=== PATIENT | female | born 1990 | race Two or more races ===

== ENCOUNTER 2019-06-05 07:30 | Observation (INO) | payer OTHER ==
[~2019-06-05] VITALS: Ht 160 cm; Wt 89.5 kg
[2019-06-05 08:43] VITALS: BP 107/55
== END 2019-06-05 08:40 | disposition home or self-care (01) ==
LOC: 4S 07:30
PROVIDERS: ADMIT Obstetrics & Gynecology; ATTEND Obstetrics & Gynecology
DX: Z34.93 Encounter for supervision of normal pregnancy, unspecified, third trimester (principal); Z3A.33 33 weeks gestation of pregnancy

== ENCOUNTER 2019-06-05 09:02 | Observation (INO) | payer OTHER ==
[~2019-06-05] VITALS: Ht 160 cm; Wt 89.6 kg
[2019-06-12 08:05] VITALS: BP 107/59
== END 2019-06-12 08:50 | disposition home or self-care (01) ==
LOC: 4S 06-12 07:45
PROVIDERS: ADMIT Obstetrics & Gynecology; ATTEND Obstetrics & Gynecology
DX: Z34.93 Encounter for supervision of normal pregnancy, unspecified, third trimester (principal); Z3A.35 35 weeks gestation of pregnancy
CPT/HCPCS: 81002; G0378

== ENCOUNTER 2019-06-19 08:06 | Observation (INO) | payer OTHER ==
[2019-06-19 08:30] VITALS: BP 97/52
== END 2019-06-19 09:00 | disposition home or self-care (01) ==
LOC: 4S 08:06
PROVIDERS: ADMIT Obstetrics & Gynecology; ATTEND Obstetrics & Gynecology
DX: O26.893 Other specified pregnancy related conditions, third trimester (principal); R42 Dizziness and giddiness; Z3A.36 36 weeks gestation of pregnancy
CPT/HCPCS: 81002; G0378

== ENCOUNTER 2019-06-22 23:30 | Observation (INO) | payer OTHER ==
[~2019-06-22] VITALS: Ht 160 cm; Wt 90.3 kg
[2019-06-23 00:35] VITALS: BP 107/59
[2019-06-23] MEDS ORDERED: PREN1TAB80 PO (02:04)
[2019-06-23] MEDS ORDERED: HYDR275A IM (02:04)
== END 2019-06-23 02:33 | disposition home or self-care (01) ==
LOC: 4S 23:30
PROVIDERS: ADMIT Obstetrics & Gynecology; ATTEND Obstetrics & Gynecology
DX: O60.03 Preterm labor without delivery, third trimester (principal); Z3A.37 37 weeks gestation of pregnancy; Z91.013 Allergy to seafood
CPT/HCPCS: 81002; G0378

== ENCOUNTER 2019-06-23 05:13 | Observation (INO) | payer OTHER ==
[~2019-06-23] VITALS: Ht 160 cm; Wt 91.3 kg
[~2019-06-23 05:13] MED LIST: HYDR275A IM; PREN1TAB80 PO
[2019-06-26] MEDS ORDERED: PREN-217 PO (09:18)
[2019-06-26 09:20] VITALS: BP 99/58
== END 2019-06-26 09:10 | disposition home or self-care (01) ==
LOC: 4S 06-26 08:15
PROVIDERS: ADMIT Obstetrics & Gynecology; ATTEND Obstetrics & Gynecology
DX: Z34.93 Encounter for supervision of normal pregnancy, unspecified, third trimester (principal); Z3A.37 37 weeks gestation of pregnancy
CPT/HCPCS: 81002; G0378

== ENCOUNTER 2019-06-29 08:18 | Inpatient (IN) | payer OTHER ==
[~2019-06-29] VITALS: Ht 160 cm; Wt 90.3 kg
[~2019-06-29 08:18] MED LIST changes: +PREN-217 PO
[2019-06-29] MEDS ORDERED: PREN-217 PO (08:51)
[2019-06-29 08:52] VITALS: BP 140/55
[2019-06-29] MEDS ORDERED: RINGERS SOLUTION,LACTATED 1,000 ML IV PRN (10:09)
[2019-06-29] MEDS ORDERED: RINGERS SOLUTION,LACTATED 1,000 ML IV SCH (10:09)
[2019-06-29] MEDS ORDERED: OXYTOCIN 30 UNITS/LACT RINGERS 500 ML IV ONE ×2 (10:09→16:02)
[2019-06-29] MEDS ORDERED: CITRIC ACID/SODIUM CITRATE 30 ML SOLUTION UDCUP PO PRN (10:15)
[2019-06-29] MEDS ORDERED: OXYGEN THERAPY IH SCH (10:15)
[2019-06-29] MEDS ORDERED: METOCLOPRAMIDE HCL 5 MG/ML 2 ML VIAL IVP PRN (10:15)
[2019-06-29 10:45] LABS: BASOPHILS % (AUTO) 0.3 % (0.0-2.0); EOSINOPHILS % (AUTO) 1.4 % (1.0-6.0); HEMATOCRIT 33.3 % (36-46); HEMOGLOBIN 11.5 g/dL (12.0-16.0); LYMPHOCYTES % (AUTO) 21.1 % (22.0-44.0); MEAN CORPUSCULAR HEMOGLOBIN 32.8 pg (26.0-34.0); MEAN CORPUSCULAR HGB CONC 34.6 G/dL (31.0-37.0); MEAN CORPUSCULAR VOLUME 95 fL (80-100); MONOCYTES # (AUTO) 0.6 K/uL (0.1-1.0); MONOCYTES % (AUTO) 6.6 % (2.0-9.0); NEUTROPHILS # (AUTO) 6.8 K/uL (1.8-7.7); NEUTROPHILS % (AUTO) 70.6 % (40.0-70.0); PLATELET COUNT (AUTO)-OB 214 K/uL (150-450); RED BLOOD CELL COUNT(AUTO) 3.51 MIL/uL (4.00-5.20); RED CELL DISTRIBUTION WIDTH 13.3 % (11.5-14.5)
[2019-06-29] MEDS ORDERED: ROPIVACAINE HCL/PF 0.2% 100 ML ED ONE (11:06)
[2019-06-29] MEDS ORDERED: DiphenhydrAMINE HCL 50 MG/ML VIAL IVP PRN (11:45)
[2019-06-29] MEDS ORDERED: ONDANSETRON HCL 4 MG/2 ML VIAL IVP PRN (11:45)
[2019-06-29] MEDS ORDERED: ROPIVACAINE HCL/PF 0.2% 100 ML ED PRN (11:45)
[2019-06-29] MEDS: FentaNYL CITRATE-PF 100 MCG/2 ML VIAL IVP PRN ×2 (12:25→12:27)
[2019-06-29] MEDS ORDERED: MINERAL OIL 30 ML UDCUP ONE (15:40)
[2019-06-29] MEDS ORDERED: BENZOCAINE 20%/MENTHOL 56 GM SPRAY CANISTER TP PRN (16:15)
[2019-06-29] MEDS ORDERED: MAGNESIUM HYDROXIDE SUSPENSION 30 ML UDCUP PO PRN (16:15)
[2019-06-29] MEDS ORDERED: GLYCERIN/WITCH HAZEL LEAF 40 PADS JAR TP PRN (16:15)
[2019-06-29] MEDS ORDERED: LANOLIN 7 GM OINTMENT TP PRN (16:15)
[2019-06-29] MEDS ORDERED: LIDOCAINE/PF 1% 30 ML VIAL INJ PRN (16:15)
[2019-06-29] MEDS ORDERED: IBUPROFEN 800 MG TABLET PO PRN (16:15)
[2019-06-29] MEDS ORDERED: OxyCODONE HCL/ACETAMINOPHEN 5-325 MG TABLET PO PRN ×2 (16:15)
[2019-06-30 07:18] LABS: EOSINOPHILS % (AUTO) 1.6 % (1.0-6.0); HEMOGLOBIN 11.9 g/dL (12.0-16.0); LYMPHOCYTES # (AUTO) 2.4 K/uL (1.0-4.8); LYMPHOCYTES % (AUTO) 18.7 % (22.0-44.0); MEAN CORPUSCULAR HEMOGLOBIN 32.2 pg (26.0-34.0); MEAN CORPUSCULAR HGB CONC 34.1 G/dL (31.0-37.0); MEAN CORPUSCULAR VOLUME 95 fL (80-100); MONOCYTES # (AUTO) 0.7 K/uL (0.1-1.0); MONOCYTES % (AUTO) 5.4 % (2.0-9.0); NEUTROPHILS # (AUTO) 9.6 K/uL (1.8-7.7); NEUTROPHILS % (AUTO) 74.3 % (40.0-70.0); PLATELET COUNT (AUTO)-OB 209 K/uL (150-450); RED BLOOD CELL COUNT(AUTO) 3.71 MIL/uL (4.00-5.20); RED CELL DISTRIBUTION WIDTH 13.3 % (11.5-14.5)
[2019-06-30] MEDS ORDERED: ACET-66 PO ×2 (16:10→16:14)
[2019-06-30] MEDS ORDERED: DSS100 PO (16:11)
[2019-06-30] MEDS ORDERED: IBUP-2070 PO (16:12)
== END 2019-06-30 17:15 | disposition home or self-care (01) | DRG 560 ==
LOC: 4S 08:18 → OBSVTOIN 08:18
PROVIDERS: ADMIT Obstetrics & Gynecology; ATTEND Obstetrics & Gynecology
PROC: 10E0XZZ Delivery of Products of Conception, External Approach (ICD-10-PCS; principal; 2019-06-29)
PROC: 3E0R3BZ Introduction of Anesthetic Agent into Spinal Canal, Percutaneous Approach (ICD-10-PCS; 2019-06-29)
PROC: 00HU33Z Insertion of Infusion Device into Spinal Canal, Percutaneous Approach (ICD-10-PCS; 2019-06-29)
DX: O80 Encounter for full-term uncomplicated delivery (principal); Z37.0 Single live birth; Z3A.37 37 weeks gestation of pregnancy
CPT/HCPCS: 86850; 86900; 86901; J2590; J2795; J3010; J7120

== ENCOUNTER 2020-10-20 11:01 | Day surgery (SDC) | payer OTHER ==
[2020-10-19 11:16] LABS: COVID AG,FIA SOURCE NASOPHARYNGEAL
[2020-10-19 11:18] LABS: BASOPHILS % (AUTO) 0.4 % (0.0-2.0); EOSINOPHILS % (AUTO) 2.4 % (1.0-6.0); HEMATOCRIT 40.9 % (36-46); HEMOGLOBIN 13.5 g/dL (12.0-16.0); LYMPHOCYTES # (AUTO) 2.4 K/uL (1.0-4.8); LYMPHOCYTES % (AUTO) 32.6 % (22.0-44.0); MEAN CORPUSCULAR HEMOGLOBIN 30.4 pg (26.0-34.0); MEAN CORPUSCULAR VOLUME 92 fL (80-100); MONOCYTES # (AUTO) 0.6 K/uL (0.1-1.0); MONOCYTES % (AUTO) 7.9 % (2.0-9.0); NEUTROPHILS # (AUTO) 4.2 K/uL (1.8-7.7); NEUTROPHILS % (AUTO) 56.7 % (40.0-70.0); PLATELET COUNT (AUTO) 256 K/uL (150-450); RED BLOOD CELL COUNT(AUTO) 4.45 MIL/uL (4.00-5.20); RED CELL DISTRIBUTION WIDTH 12.4 % (11.5-14.5)
[2020-10-19 11:28] LABS: ANION GAP 6 mmol/L (8-16); CALCIUM, TOTAL 8.7 mg/dL (8.8-10.5); CARBON DIOXIDE 26 mmol/L (22-29); CHLORIDE 104 mmol/L (98-107); GLOMERULAR FILTR. RATE CALC > 60 mL/min (>60); GLUCOSE,RANDOM 81 mg/dL (70-110); POTASSIUM 3.9 mmol/L (3.5-5.1); SODIUM SERUM 136 mmol/L (136-145); UREA NITROGEN, BLOOD 12 mg/dL (7-18)
[~2020-10-20] VITALS: Ht 160 cm; Wt 83.2 kg
[~2020-10-20 11:01] MED LIST changes: +ACET-66 PO; +DOCU-275 PO; -HYDR275A IM; +IBUP-2070 PO; -PREN1TAB80 PO; +RINGERS SOLUTION,LACTATED 1,000 ML IV ONE
[2020-10-20] MEDS ORDERED: ROCURONIUM BROMIDE 10 MG/ML 5 ML VIAL IVP ONE (11:02)
[2020-10-20] MEDS ORDERED: LIDOCAINE/PF 2% 5 ML VIAL IM ONE (11:02)
[2020-10-20] MEDS ORDERED: PHENYLEPHRINE HCL 10 MG/ML VIAL IVP ONE (11:02)
[2020-10-20] MEDS ORDERED: KETOROLAC TROMETHAMINE 60 MG/2 ML VIAL IM ONE (11:02)
[2020-10-20] MEDS ORDERED: DEXAMETHASONE SOD PHOS 4 MG/ML VIAL IVP ONE (11:02)
[2020-10-20] MEDS ORDERED: PROPOFOL 1% 20 ML VIAL IVP ONE (11:02)
[2020-10-20] MEDS ORDERED: MIDAZOLAM HCL 2 MG/2 ML VIAL IVP ONE (11:02)
[2020-10-20] MEDS ORDERED: ONDANSETRON HCL 4 MG/2 ML VIAL IVP ONE (11:02)
[2020-10-20] MEDS ORDERED: FentaNYL CITRATE PF 100 MCG/2 ML VIAL IVP ONE (11:02)
[2020-10-20] MEDS ORDERED: SODIUM CHLORIDE 0.9% 0 ML ONE (11:35)
[2020-10-20] MEDS ORDERED: BUPIVACAINE HCL/PF 0.25% 30 ML VIAL IM ONE (12:45)
[2020-10-20] MEDS ORDERED: FentaNYL CITRATE PF 100 MCG/2 ML VIAL IVP PRN (13:30)
[2020-10-20] MEDS ORDERED: MEPERIDINE-PF 25 MG/ML VIAL IVP PRN (13:30)
[2020-10-20] MEDS ORDERED: HYDROCODONE/ACETAMINOPHEN 5-325 MG TABLET PO PRN (13:30)
[2020-10-20] MEDS ORDERED: HYDROmorphone 2 MG/ML SYRINGE IVP PRN (13:30)
[2020-10-20] MEDS ORDERED: MORPHINE SULFATE 4 MG/ML SYRINGE IVP PRN (13:30)
[2020-10-20] MEDS ORDERED: OXYGEN THERAPY IH SCH (20:00)
== END 2020-10-20 14:50 | disposition home or self-care (01) ==
LOC: SURGERY 11:01
PROVIDERS: ATTEND Obstetrics & Gynecology
DX: Z30.2 Encounter for sterilization (principal); E66.3 Overweight; Z91.013 Allergy to seafood; Z98.890 Other specified postprocedural states
CPT/HCPCS: 36415; 58670; 80048; 84703; 85025; 87426; 88302; C9803; J1100; J1885; J2250; J2370; J2405; J2704; J3010; J3490 ×3; J7120; J7030